=== PATIENT | female | born 1970 | race Native Hawaiian/Other Pacific Islander ===

== ENCOUNTER 2017-11-20 02:01 | Observation (INO) | payer OTHER ==
--- NOTE | 2017-11-20 02:14 | C.PDOC ---
History Of Present Illness 47 year old female presents to the ED c/o mid epigastric pain radiating to the back that started today at 22:00. Patient states he took 1 Aspirin and tums afterward. Patient denies fever, chills, nausea, vomit, diarrhea, dysuria, hematuria. Time Seen by Provider: 11/20/17 02:13 Chief Complaint (Nursing): Abdominal Pain History Per: Patient History/Exam Limitations: no limitations Onset/Duration Of Symptoms: Hrs Current Symptoms Are (Timing): Still Present Context: Other Severity: Moderate Pain Scale Rating Of: 5 Location Of Pain/Discomfort: RUQ, Epigastric Radiation Of Pain To:: Back Quality Of Discomfort: Dull, Aching Associated Symptoms: Back Pain. denies: Nausea, Vomiting, Diarrhea Exacerbating Factors: None Alleviating Factors: None Last Bowel Movement: Yesterday Recent travel outside of the [place]: No Additional History Per: Family Abnormal Vaginal Bleeding: No Past Medical History Reviewed: Historical Data, Nursing Documentation, Vital Signs Vital Signs: Last Vital Signs Temp 98.7 F 11/20/17 02:10 Pulse 82 11/20/17 02:10 Resp 20 11/20/17 02:10 BP 182/93 H 11/20/17 02:10 Pulse Ox 97 11/20/17 03:08 - Medical History PMH: No Chronic Diseases Surgical History: No Surg Hx Family History: States: Unknown Family Hx - Social History Hx Tobacco Use: No Hx Alcohol Use: No Hx Substance Use: No Review Of Systems Constitutional: Negative for: Fever, Chills Cardiovascular: Negative for: Chest Pain Respiratory: Negative for: Shortness of Breath Gastrointestinal: Positive for: Nausea, Abdominal Pain. Negative for: Vomiting Genitourinary: Negative for: Dysuria, Hematuria Musculoskeletal: Positive for: Back Pain Skin: Negative for: Rash Neurological: Negative for: Weakness Psych: Negative for: Anxiety Physical Exam - Physical Exam Appears: Non-toxic Skin: Warm, Dry Head: Normacephalic Eye(s): bilateral: Normal Inspection Oral Mucosa: Moist Neck: Supple Chest: Symmetrical Cardiovascular: Rhythm Regular Respiratory: No Rales, No Rhonchi, No Wheezing Gastrointestinal/Abdominal: Soft, Tenderness (epigastric), Distention, No Guarding, No Rebound, Other (tympanic to percussion) Back: Normal Inspection Extremity: No Tenderness, No Swelling Extremity: Bilateral: Atraumatic, Normal Color And Temperature, Normal ROM Neurological/Psych: Oriented x3, Normal Speech Gait: Steady ED Course And Treatment - Laboratory Results Result Diagrams: 11/20/17 02:29 11/20/17 02:29 ECG: Interpreted By Me, Viewed By Me ECG Rhythm: Sinus Rhythm (80), Nonspecific Changes O2 Sat by Pulse Oximetry: 97 (ON RA) Pulse Ox Interpretation: Normal Progress Note: Plan: - VBG. - EKG. - Labs. - Morphine 2 mg IVP. - Protonix 40 mg IVP. - IV fluids. - Zofran 4 mg IVP. - UA Disposition Discussed With : Malou Colon Comment: accepted the pt on his service and took over the care at 6:37 AM Doctor Will See Patient In The: Hospital Counseled Patient/Family Regarding: Studies Performed, Diagnosis - Disposition Disposition: HOSPITALIZED Disposition Time: 02:14 Condition: FAIR Forms: [facility] (Bengali) - Clinical Impression Clinical Impression: Abdominal pain, Cholelithiasis - Scribe Statement The provider has reviewed the documentation as recorded by the Scribe Rehan Keith All medical record entries made by the Scribe were at my direction and personally dictated by me. I have reviewed the chart and agree that the record accurately reflects my personal performance of the history, physical exam, medical decision making, and the department course for this patient. I have also personally directed, reviewed, and agree with the discharge instructions and disposition. Decision To Admit - Pt Status Changed To: Hospital Disposition Of: Observation - . Bed Request Type: Regular Admitting Physician: Malou Colon Patient Diagnosis: Abdominal pain, Cholelithiasis
[2017-11-20] MEDS ORDERED: Sodium Chloride 0.9% 1,000 ML IV ONE ×2 (02:18)
[2017-11-20] MEDS ORDERED: Sodium Chloride 0.9% 1,000 ML ONE (02:30)
[2017-11-20 02:34] LABS: BASO # 0.1 K/uL (0.0-0.2); BASO % 0.5 % (0.0-2.0); EOS # 0.2 K/uL (0.0-0.7); MONO # 0.4 K/uL (0.0-0.8)
[2017-11-20 02:37] LABS: EOS % 1.8 % (0.0-4.0); HEMOGLOBIN 12.9 g/dL (11.0-16.0); LYMPH % 15.1 % (20.0-40.0); MEAN CELL VOLUME 84.8 fL (81.0-99.0); MEAN CORPUSCULAR HEMOGLOBIN 28.9 pg (27.0-31.0); MEAN CORPUSCULAR HGB CONC 34.1 g/dL (33.0-37.0); MEAN PLATELET VOLUME 9.4 fL (7.2-11.7); MONO % 3.4 % (0.0-10.0); NEUT # 10.6 K/uL (1.8-7.0); NEUT % 79.2 % (50.0-75.0); RBC 4.46 Mil/uL (3.80-5.20); RED CELL DISTRIBUTION WIDTH 13.7 % (11.5-14.5); WHITE BLOOD COUNT 13.3 K/uL (4.8-10.8)
[2017-11-20 02:45] LABS: VENOUS BLOOD GAS BASE EXCESS 0.8 mmol/L (0.0-2.0); VENOUS BLOOD GAS PCO2 46 mmHg (40-60); VENOUS BLOOD GAS PO2 31 mm/Hg (30-55); VENOUS BLOOD PH 7.37 (7.32-7.43)
[2017-11-20 03:36] LABS: SQUAMOUS EPITHIAL 1 /hpf (0-5); URINE BILIRUBIN NEGATIVE (NEGATIVE); URINE BLOOD NEGATIVE (NEGATIVE); URINE CLARITY Clear (Clear); URINE COLOR Yellow (YELLOW); URINE GLUCOSE (UA) 3+ mg/dL (Normal); URINE LEUKOCYTE ESTERASE NEG Leu/uL (Negative); URINE PROTEIN 2+ mg/dL (NEGATIVE); URINE UROBILINOGEN NORMAL mg/dL (0.2-1.0)
[2017-11-20 03:39] LABS: BLOOD UREA NITROGEN 14 mg/dL (7-17); GFR NON-AFRICAN AMERICAN > 60
[2017-11-20 03:40] LABS: ALBUMIN 4.3 g/dL (3.5-5.0); CALCIUM 9.5 mg/dl (8.6-10.4)
[2017-11-20 03:41] LABS: ALT/SGPT 28 U/L (9-52); AST/SGOT 24 U/L (14-36)
[2017-11-20 03:42] LABS: LIPASE 97 U/L (23-300)
[2017-11-20 03:48] LABS: PROTHROMBIN TIME 12.5 SECONDS (9.7-12.2)
[2017-11-20 03:49] LABS: INR 1.1
[2017-11-20] MEDS ORDERED: Iodixanol 320 MG/ML 100 ML BOTTLE IV ONE (03:49)
--- NOTE | 2017-11-20 09:29 | CT ---
Date of service: 11/20/2017 PROCEDURE: CT Abdomen and Pelvis with intravenous contrast HISTORY: Abdominal pain COMPARISON: None. TECHNIQUE: Multiple contiguous axial images were performed through the abdomen and pelvis with the use of intravenous contrast. Subsequently, sagittal and coronal reformatted images were obtained. Radiation dose: Total exam DLP = 467 mGy-cm. This CT exam was performed using one or more of the following dose reduction techniques: Automated exposure control, adjustment of the mA and/or kV according to patient size, and/or use of iterative reconstruction technique. FINDINGS: LOWER THORAX: Scattered areas of atelectasis at the lung bases. LIVER: Mild fatty infiltration of the liver. GALLBLADDER AND BILE DUCTS: Cholelithiasis. PANCREAS: Unremarkable. No gross lesion or ductal dilatation. SPLEEN: Unremarkable. ADRENALS: Mild nodular thickening of the bilateral adrenal glands measuring up to 9 millimeters on the right and up to 8 millimeters on the left as demonstrated on series 3 images 57 and 65 respectively. This may be better evaluated with multiphasic CT if clinically indicated. KIDNEYS AND URETERS: Unremarkable. No hydronephrosis. No solid mass. VASCULATURE: Unremarkable. No aortic aneurysm. BOWEL: Unremarkable. No obstruction. No gross mural thickening. APPENDIX: No findings to suggest acute appendicitis. PERITONEUM: Unremarkable. No free fluid. No free air. LYMPH NODES: Unremarkable. No enlarged lymph nodes. BLADDER: Unremarkable. REPRODUCTIVE: 3.5 centimeter right adnexal cyst. BONES: Degenerative changes in the spine. OTHER FINDINGS: None. IMPRESSION: Cholelithiasis. 3.5 centimeter right adnexal cyst. Mild nodular thickening of the bilateral adrenal glands measuring up to 9 millimeters on the right and up to 8 millimeters on the left as demonstrated on series 3 images 57 and 65 respectively. This may be better evaluated with multiphasic CT if clinically indicated. Appendix not well identified. These findings were preliminarily reported at 6:10 a.m. on 11/20/[address] Tefoilo Ritter from [facility].
--- NOTE | 2017-11-20 09:35 | CP.PCM.CON ---
History of Present Illness - History of Present Illness History of Present Illness: PGY-1 General Surgery consult note for Dr. Lo Patient is 47 yo Female with Pmhx of DMII, HTN and HLD, that came to ER this morning for back pain and upper abdominal pain. Patient states pain started about 10 pm, about 15 minutes after eating small portion of pasta and a sip of soda. Patient described the back pain as a dull, pressure like pain, and the stomach pain as a dull pain. Patient says this is the first time she experience this type of pain. Pain is the worst when patient moves. Patient took TUMS and aspirin at home with little to no relief. Patient denies fever, chills, nausea, vomiting, dizziness, headaches, shoulder pain, chest pain or shortness of breath , diarrhea, hematuria or dysuria. Patient admits to having constipation but was able to go to the bathroom yesterday. PMD: Darlene All: Benadryl (chest warmth) PMHX: DMII, HTN, HLD, asthma PSHX: Left ankle surgery due to fracture (2002) Meds: see list Famhx: noncontributory Socialhx: Patient denies smoking, alcohol or illicit drug use. Patient works as MEDICAL RADIATION TECH at [employer] Review of Systems - Constitutional Constitutional: absent: Chills, Fever - Cardiovascular Cardiovascular: absent: Chest Pain - Respiratory Respiratory: absent: Dyspnea - Gastrointestinal Gastrointestinal: Abdominal Pain, Constipation. absent: Diarrhea, Nausea, Vomiting Additional comments: epigastric pain - Genitourinary Genitourinary: absent: Difficulty Urinating, Dysuria, Hematuria - Musculoskeletal Musculoskeletal: Back Pain - Neurological Neurological: absent: Dizziness, Headaches Past Patient History - Infectious Disease Hx of Infectious Diseases: None - Past Medical History & Family History Past Medical History?: Yes - Past Social History Smoking Status: Never Smoked - CARDIAC Hx Hypercholesterolemia: Yes Hx Hypertension: Yes - PULMONARY Hx Respiratory Disorders: Yes Hx Asthma: Yes - NEUROLOGICAL Hx Neurological Disorder: No - HEENT Hx HEENT Problems: No - RENAL Hx Chronic Kidney Disease: No - ENDOCRINE/METABOLIC Hx Endocrine Disorders: Yes Hx Diabetes Mellitus Type 2: Yes - HEMATOLOGICAL/ONCOLOGICAL Hx Blood Disorders: No - INTEGUMENTARY Hx Dermatological Problems: No - MUSCULOSKELETAL/RHEUMATOLOGICAL Hx Musculoskeletal Disorders: No Hx Falls: No - GASTROINTESTINAL Hx Gastrointestinal Disorders: No - GENITOURINARY/GYNECOLOGICAL Hx Genitourinary Disorders: No - PSYCHIATRIC Hx Substance Use: No - SURGICAL HISTORY Hx Surgeries: No - ANESTHESIA Hx Anesthesia: Yes Meds Allergies/Adverse Reactions: Allergies Allergy/AdvReac Type Severity Reaction Status Date / Time diphenhydramine Allergy Verified 11/20/17 02:16 [From Benadryl] - Medications Medications: Current Medications Insulin Human Regular (Novolin R) 0 unit SC ACHS CHIP PRN Reason: Protocol Pantoprazole Sodium (Protonix Inj) 40 mg IVP DAILY CHIP Physical Exam - Constitutional Appears: Non-toxic, No Acute Distress - Head Exam Head Exam: ATRAUMATIC, NORMAL INSPECTION, NORMOCEPHALIC - Eye Exam Eye Exam: EOMI - ENT Exam ENT Exam: Mucous Membranes Moist - Neck Exam Neck exam: Positive for: Normal Inspection - Respiratory Exam Respiratory Exam: Clear to Auscultation Bilateral, NORMAL BREATHING PATTERN. absent: Accessory Muscle Use, Rhonchi, Wheezes, Respiratory Distress - Cardiovascular Exam Cardiovascular Exam: REGULAR RHYTHM - GI/Abdominal Exam GI & Abdominal Exam: Soft. absent: Distended, Firm, Guarding, Rebound, Rigid - Extremities Exam Extremities exam: Positive for: normal inspection - Back Exam Back exam: FULL ROM, NORMAL INSPECTION. absent: CVA tenderness (L), CVA tenderness (R), muscle spasm, paraspinal tenderness, tenderness, vertebral tenderness - Neurological Exam Neurological exam: Alert, Oriented x3 - Psychiatric Exam Psychiatric exam: Normal Affect, Normal Mood - Skin Skin Exam: Intact, Normal Color, Warm Results - Vital Signs Recent Vital Signs: Last Vital Signs Temp 98.1 F 11/20/17 08:20 Pulse 83 11/20/17 08:20 Resp 17 11/20/17 08:20 BP 163/89 H 11/20/17 08:20 Pulse Ox 97 11/20/17 08:20 - Labs Result Diagrams: 11/20/17 02:29 11/20/17 02:29 Labs: Laboratory Results - last 24 hr 11/20/17 11/20/17 11/20/17 02:18 02:29 02:29 WBC 13.3 H RBC 4.46 Hgb 12.9 Hct 37.8 MCV 84.8 D MCH 28.9 MCHC 34.1 RDW 13.7 Plt Count 234 MPV 9.4 Neut % (Auto) 79.2 H Lymph % (Auto) 15.1 L [place] % (Auto) 3.4 Eos % (Auto) 1.8 Baso % (Auto) 0.5 Neut # (Auto) 10.6 H Lymph # (Auto) 2.0 [place] # (Auto) 0.4 Eos # (Auto) 0.2 Baso # (Auto) 0.1 PT 12.5 H INR 1.1 APTT 33 pO2 VBG pH VBG pCO2 VBG HCO3 VBG Total CO2 VBG O2 Sat (Calc) VBG Base Excess VBG Potassium Glucose Lactate Sodium Potassium Chloride Carbon Dioxide Anion Gap BUN Creatinine Est GFR ( Amer) Est GFR (Non-Af Amer) Random Glucose Calcium Total Bilirubin AST ALT Alkaline Phosphatase Total Protein Albumin Globulin Albumin/Globulin Ratio Lipase Venous Blood Potassium Urine Color Yellow Urine Clarity Clear Urine pH 6.0 Ur Specific [place] 1.018 Urine Protein 2+ H Urine Glucose (UA) 3+ H Urine Ketones 1+ H Urine Blood Negative Urine Nitrate Negative Urine Bilirubin Negative Urine Urobilinogen Normal Ur Leukocyte Esterase Neg Urine WBC (Auto) 2 Urine RBC (Auto) < 1 Ur Squamous Epith Cells 1 Urine HCG, Qual 11/20/17 11/20/17 11/20/17 02:29 02:36 03:04 WBC RBC Hgb Hct MCV MCH MCHC RDW Plt Count MPV Neut % (Auto) Lymph % (Auto) [place] % (Auto) Eos % (Auto) Baso % (Auto) Neut # (Auto) Lymph # (Auto) [place] # (Auto) Eos # (Auto) Baso # (Auto) PT INR APTT pO2 31 VBG pH 7.37 VBG pCO2 46 VBG HCO3 24.5 VBG Total CO2 28.0 VBG O2 Sat (Calc) 60.4 VBG Base Excess 0.8 VBG Potassium 2.8 L Glucose 228 H Lactate 1.9 Sodium 140 141.0 Potassium 3.5 L Chloride 98 104.0 Carbon Dioxide 27 Anion Gap 19 BUN 14 Creatinine 0.8 Est GFR ( Amer) > 60 Est GFR (Non-Af Amer) > 60 Random Glucose 265 H Calcium 9.5 Total Bilirubin 0.8 AST 24 ALT 28 Alkaline Phosphatase 57 Total Protein 8.5 H Albumin 4.3 Globulin 4.3 H Albumin/Globulin Ratio 1.0 Lipase 97 Venous Blood Potassium 2.8 L Urine Color Urine Clarity Urine pH Ur Specific [place] Urine Protein Urine Glucose (UA) Urine Ketones Urine Blood Urine Nitrate Urine Bilirubin Urine Urobilinogen Ur Leukocyte Esterase Urine WBC (Auto) Urine RBC (Auto) Ur Squamous Epith Cells Urine HCG, Qual Negative Assessment & Plan - Assessment and Plan (Free Text) Assessment: 47 yo F with epigastric and back pain 2/2 cholelithiasis Plan: CT 11/20 - cholelithiasis Ab U/S - no calculi sludge, normal wall thickness of 2mm negative sonographic cox sign HIDA scan - No nuclear evidence of acute cholecystitis or acute cystic duct obstruction. Potential gallbladder dusfunction, chronic chilecystitis or partial or intermittent cystic duct obstruction. no nuclear evidence of common bile duct obstruction - Patient will be scheduling/following up for cholecystectomy in middle of november - Patient will be getting outpatient follow up U/S -clear to D/C as per surgical standpoint Plan discussed with Dr Wally Vazquez, PGY-1 - Date & Time Date: 11/20/17 Time: 08:30
--- NOTE | 2017-11-20 09:58 | US ---
Right upper quadrant abdominal ultrasound History: Right upper quadrant abdominal pain. Comparison: None available. Technique: Real-time sonography was performed through the right upper quadrant of the abdomen. Findings: Liver: 15.7 centimeters in length. Increased echogenicity of the hepatic parenchymal cortex suggestive for fatty infiltration versus hepatic parenchymal disease. Clinical correlation. Gallbladder: No calculi or sludge. Normal wall thickness of 2 millimeters. Negative sonographic Andrade's sign. Common bile duct measures 2.8 millimeters, within normal limits. Limited visualization of the pancreas. Visualized aorta and IVC are preserved. Right kidney: 11.2 x 4.4 x 4 3 centimeters. No calculi or hydronephrosis. Impression: Increased echogenicity of the hepatic parenchymal cortex suggestive for fatty infiltration versus hepatic parenchymal disease. Clinical correlation. Limited visualization of the pancreas.
[2017-11-20] MEDS: (Novolin R) Insulin Human Regular 100 units/ml vial SC SCH ×3 (12:30→21:56)
--- NOTE | 2017-11-20 15:26 | NM ---
Date of service: 11/20/2017 PROCEDURE: Nuclear Medicine Hepatobiliary Scan HISTORY: gallstones COMPARISON: Contrast abdomen and pelvis CT and an ultrasound exam 11/20/2017. TECHNIQUE: 5.1 mCi of technetium 99m Mebrofenin was administered intravenously. Planar images of the abdomen were obtained at 5 min intervals to 60 mins. Delayed images were also obtained at 3 hours post isotope administration. . FINDINGS: LIVER: Timely and homogenous uptake. COMMON BILE DUCT: identified at 15 mins. GALLBLADDER: identified at 180 mins. SMALL BOWEL: Identified at 20 mins. IMPRESSION: No nuclear evidence of acute cholecystitis or acute cystic duct obstruction. Potential gallbladder dysfunction, chronic cholecystitis or partial or intermittent cystic duct obstruction. No nuclear evidence of common bile duct obstruction.
[2017-11-20 16:21] VITALS: RESP 20
--- NOTE | 2017-11-20 21:20 | CP.PCM.HP ---
History of Present Illness - History of Present Illness History of Present Illness: Chief complaint: Abdominal pain HPI: 47-year-old female with a history of diabetes, hypertension, hypercholesteremia and also bronchial asthma came to the emergency room with the sudden onset of abdominal pain started since yesterday. Patient started noticing pain in the epigastric area, radiating to the mid back. Also felt nauseated, and one episode of vomiting. 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 Patient was not able to tolerate any feeding, in the emergency room patient was given pain medication, and evaluated. This morning patient was feeling well. She did not have any pain. She denied any nausea at this moment. But she is currently nothing by mouth No chest pain noted, she has no fever. She denies any chest pain, no palpitation noted. Patient is not controlling the blood sugar very well, and she is also noncompensatory medication Past medical history: Hypertension diabetes hypercholesteremia and bronchial asthma Surgical history includes right ankle internal fixation open reduction. 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 No diarrhea noted. No fever On examination: Vital signs stable. Elevated blood pressure noted Chest bilateral good air entry Regular heart sound noted. Abdomen soft. Mild epigastric tenderness noted. SPIN INSTRUCTOR alert awake oriented. Pedal edema negative Patient initially labs reviewed Glucose 265 Liver function is normal. Potassium level 3.5 Patient had a sonogram of the abdomen. Patient after the CAT scan of the abdomen showing evidence of Stones. Otherwise nonspecific. Sonogram did not show the gallstone. But HIDA scan suspicious for acute cholecystitis. Assessment: 47-year-old female with a history of diabetes hypertension high cholesterol and asthma. Patient is noncompensatory medication. Came to the emergency room and admitted now with the possible acute cholecystitis, associate with epigastric discomfort and pain, and less likely pancreatitis but clinically looks pancreatitis. Surgical evaluation. Glucose control. IV fluid. Spoke to the patient in detail about the prognosis. Also spoke to the patient regarding the test results. Currently patient is reluctant to, she does not want to have the operation. We will repeat the sonogram tomorrow. Continue the IV fluid. Pain management if needed. We'll repeat the sonogram Patient is not willing to have the operation at this time. Will follow-up the patient. DVT GI prophylaxis glucose control antibiotic Protonix and will follow-up the patient Present on Admission - Present on Admission Any Indicators Present on Admission: No History of DVT/PE: No History of Uncontrolled Diabetes: No Urinary Catheter: No Decubitus Ulcer Present: No Past Patient History - Infectious Disease Hx of Infectious Diseases: None - Past Medical History & Family History Past Medical History?: Yes - Past Social History Smoking Status: Never Smoked - CARDIAC Hx Hypercholesterolemia: Yes Hx Hypertension: Yes - PULMONARY Hx Respiratory Disorders: Yes Hx Asthma: Yes - NEUROLOGICAL Hx Neurological Disorder: No - HEENT Hx HEENT Problems: No - RENAL Hx Chronic Kidney Disease: No - ENDOCRINE/METABOLIC Hx Endocrine Disorders: Yes Hx Diabetes Mellitus Type 2: Yes - HEMATOLOGICAL/ONCOLOGICAL Hx Blood Disorders: No - INTEGUMENTARY Hx Dermatological Problems: No - MUSCULOSKELETAL/RHEUMATOLOGICAL Hx Musculoskeletal Disorders: No Hx Falls: No - GASTROINTESTINAL Hx Gastrointestinal Disorders: No - GENITOURINARY/GYNECOLOGICAL Hx Genitourinary Disorders: No - PSYCHIATRIC Hx Substance Use: No - SURGICAL HISTORY Hx Surgeries: No - ANESTHESIA Hx Anesthesia: Yes Meds Allergies/Adverse Reactions: Allergies Allergy/AdvReac Type Severity Reaction Status Date / Time diphenhydramine Allergy Verified 11/20/17 02:16 [From Benadryl] Results - Vital Signs Recent Vital Signs: Last Vital Signs Temp 98.1 F 11/20/17 16:21 Pulse 77 11/20/17 16:21 Resp 20 11/20/17 16:21 BP 145/91 H 11/20/17 16:21 Pulse Ox 95 11/20/17 16:21 - Labs Result Diagrams: 11/20/17 02:29 11/20/17 02:29 Labs: Laboratory Results - last 24 hr 11/20/17 11/20/17 11/20/17 02:18 02:29 02:29 WBC 13.3 H RBC 4.46 Hgb 12.9 Hct 37.8 MCV 84.8 D MCH 28.9 MCHC 34.1 RDW 13.7 Plt Count 234 MPV 9.4 Neut % (Auto) 79.2 H Lymph % (Auto) 15.1 L [place] % (Auto) 3.4 Eos % (Auto) 1.8 Baso % (Auto) 0.5 Neut # (Auto) 10.6 H Lymph # (Auto) 2.0 [place] # (Auto) 0.4 Eos # (Auto) 0.2 Baso # (Auto) 0.1 PT 12.5 H INR 1.1 APTT 33 pO2 VBG pH VBG pCO2 VBG HCO3 VBG Total CO2 VBG O2 Sat (Calc) VBG Base Excess VBG Potassium Glucose Lactate Sodium Potassium Chloride Carbon Dioxide Anion Gap BUN Creatinine Est GFR ( Amer) Est GFR (Non-Af Amer) POC Glucose (mg/dL) Random Glucose Calcium Total Bilirubin AST ALT Alkaline Phosphatase Total Protein Albumin Globulin Albumin/Globulin Ratio Lipase Venous Blood Potassium Urine Color Yellow Urine Clarity Clear Urine pH 6.0 Ur Specific [place] 1.018 Urine Protein 2+ H Urine Glucose (UA) 3+ H Urine Ketones 1+ H Urine Blood Negative Urine Nitrate Negative Urine Bilirubin Negative Urine Urobilinogen Normal Ur Leukocyte Esterase Neg Urine WBC (Auto) 2 Urine RBC (Auto) < 1 Ur Squamous Epith Cells 1 Urine HCG, Qual 11/20/17 11/20/17 11/20/17 02:29 02:36 03:04 WBC RBC Hgb Hct MCV MCH MCHC RDW Plt Count MPV Neut % (Auto) Lymph % (Auto) [place] % (Auto) Eos % (Auto) Baso % (Auto) Neut # (Auto) Lymph # (Auto) [place] # (Auto) Eos # (Auto) Baso # (Auto) PT INR APTT pO2 31 VBG pH 7.37 VBG pCO2 46 VBG HCO3 24.5 VBG Total CO2 28.0 VBG O2 Sat (Calc) 60.4 VBG Base Excess 0.8 VBG Potassium 2.8 L Glucose 228 H Lactate 1.9 Sodium 140 141.0 Potassium 3.5 L Chloride 98 104.0 Carbon Dioxide 27 Anion Gap 19 BUN 14 Creatinine 0.8 Est GFR ( Amer) > 60 Est GFR (Non-Af Amer) > 60 POC Glucose (mg/dL) Random Glucose 265 H Calcium 9.5 Total Bilirubin 0.8 AST 24 ALT 28 Alkaline Phosphatase 57 Total Protein 8.5 H Albumin 4.3 Globulin 4.3 H Albumin/Globulin Ratio 1.0 Lipase 97 Venous Blood Potassium 2.8 L Urine Color Urine Clarity Urine pH Ur Specific [place] Urine Protein Urine Glucose (UA) Urine Ketones Urine Blood Urine Nitrate Urine Bilirubin Urine Urobilinogen Ur Leukocyte Esterase Urine WBC (Auto) Urine RBC (Auto) Ur Squamous Epith Cells Urine HCG, Qual Negative 11/20/17 11/20/17 11:06 16:35 WBC RBC Hgb Hct MCV MCH MCHC RDW Plt Count MPV Neut % (Auto) Lymph % (Auto) [place] % (Auto) Eos % (Auto) Baso % (Auto) Neut # (Auto) Lymph # (Auto) [place] # (Auto) Eos # (Auto) Baso # (Auto) PT INR APTT pO2 VBG pH VBG pCO2 VBG HCO3 VBG Total CO2 VBG O2 Sat (Calc) VBG Base Excess VBG Potassium Glucose Lactate Sodium Potassium Chloride Carbon Dioxide Anion Gap BUN Creatinine Est GFR ( Amer) Est GFR (Non-Af Amer) POC Glucose (mg/dL) 207 H 142 H Random Glucose Calcium Total Bilirubin AST ALT Alkaline Phosphatase Total Protein Albumin Globulin Albumin/Globulin Ratio Lipase Venous Blood Potassium Urine Color Urine Clarity Urine pH Ur Specific [place] Urine Protein Urine Glucose (UA) Urine Ketones Urine Blood Urine Nitrate Urine Bilirubin Urine Urobilinogen Ur Leukocyte Esterase Urine WBC (Auto) Urine RBC (Auto) Ur Squamous Epith Cells Urine HCG, Qual
[2017-11-20] MEDS: metroNIDAZOLE IV 500 mg/100 ml 250 MG in Premixed IV 1 EA IVPB SCH (22:43)
[2017-11-20] MEDS: Ciprofloxacin 400mg/200ml D5W 400 MG/200 ML BAG IVPB SCH (23:58)
[2017-11-21] MEDS: metroNIDAZOLE IV 500 mg/100 ml 250 MG in Premixed IV 1 EA IVPB SCH ×3 (06:35→19:31)
[2017-11-21] MEDS ORDERED: GlipiZIDE 2.5 mg Tab PO SCH (07:30)
[2017-11-21 08:16] LABS: BASO # 0.1 K/uL (0.0-0.2); BASO % 0.7 % (0.0-2.0); EOS # 0.1 K/uL (0.0-0.7); HEMOGLOBIN 12.1 g/dL (11.0-16.0); LYMPH # 1.7 K/uL (1.0-4.3); LYMPH % 13.3 % (20.0-40.0); MEAN CELL VOLUME 84.5 fL (81.0-99.0); MEAN CORPUSCULAR HEMOGLOBIN 28.7 pg (27.0-31.0); MEAN PLATELET VOLUME 9.3 fL (7.2-11.7); MONO # 0.5 K/uL (0.0-0.8); MONO % 3.9 % (0.0-10.0); NEUT # 10.5 K/uL (1.8-7.0); NEUT % 81.1 % (50.0-75.0); RBC 4.22 Mil/uL (3.80-5.20); RED CELL DISTRIBUTION WIDTH 13.7 % (11.5-14.5)
[2017-11-21] MEDS: (Novolin R) Insulin Human Regular 100 units/ml vial SC SCH ×4 (08:30→21:49)
[2017-11-21 08:41] LABS: BLOOD UREA NITROGEN 7 mg/dL (7-17); CALCIUM 9.2 mg/dl (8.6-10.4); GFR NON-AFRICAN AMERICAN > 60
[2017-11-21 08:42] LABS: ALB/GLOB RATIO 1.1 (1.0-2.1); ALT/SGPT 18 U/L (9-52); AST/SGOT 15 U/L (14-36)
[2017-11-21] MEDS: Ciprofloxacin 400mg/200ml D5W 400 MG/200 ML BAG IVPB SCH ×2 (09:37→20:23)
[2017-11-21 14:31] VITALS: O2SAT 98
[2017-11-21 15:42] VITALS: PULSE 90; TEMP 98.8
[2017-11-21 21:24] VITALS: BP 137/87
--- NOTE | 2017-11-22 00:06 | CARD ---
APPROVED REPORT Date of service: 11/20/2017 EKG Measurement Heart [id number] <Conclusion> Normal sinus rhythm Possible Left atrial enlargement Borderline ECG
== END 2017-11-21 22:30 | disposition home or self-care (01) ==
LOC: C.ER 02:01 → C.5S 06:35
PROVIDERS: ADMIT Internal Medicine; ATTEND Internal Medicine
DX: K80.20 Calculus of gallbladder without cholecystitis without obstruction (principal); I10 Essential (primary) hypertension; E11.9 Type 2 diabetes mellitus without complications; J45.909 Unspecified asthma, uncomplicated; E78.00 Pure hypercholesterolemia, unspecified; E78.5 Hyperlipidemia, unspecified; Z82.49 Family history of ischemic heart disease and other diseases of the circulatory system
CPT/HCPCS: 36415; 74177; 76705; 78226; 80053; 81001; 82803; 82948; 83690; 83735; 84100; 84703; 85025; 85610; 85730; 93005; 96374; 99285; A9537; C9113; G0378; J0744; J2270; J2405; J7030; Q9967